=== PATIENT | male | born 1960 | race Caucasian/White ===

== ENCOUNTER → 2021-01-24 | Outpatient (CLI) | payer SELFPAY ==
--- NOTE | 2021-01-24 12:46 | Diagnostic Imaging Report ---
EXAMINATION: CT chest without contrast. TECHNIQUE: Multiple contiguous axial images were obtained through the chest without the use of intravenous contrast. All CT scans use one or more of the following dose optimizing techniques: automated exposure control, MA and/or KvP adjustment based on patient size and exam type or iterative reconstruction. HISTORY: Chest pain for 5 days. COMPARISON: None available. FINDINGS: The heart size is within normal limits. No pericardial effusion is present. Small amount of calcified atherosclerotic plaque is seen in the thoracic aorta and coronary arteries. No evidence of aneurysm formation. There is no mediastinal, hilar, or axillary lymphadenopathy. Scattered subcentimeter pulmonary nodules are seen in the lungs, the largest in the right upper lobe measuring 0.5 cm. No evidence of pulmonary mass or focal consolidation. No central endobronchial obstructing lesions are identified. There is no pleural effusion or pneumothorax. No acute fracture or dislocation is seen in the chest. Small focal sclerotic lesions are seen in the inferior endplate of T12 and superior endplate of L2. Limited views of the upper abdominal structures demonstrate no acute abnormalities. Both adrenal glands are unremarkable. IMPRESSION: 1. Scattered subcentimeter pulmonary nodules measuring up to 0.5 cm. Recommend follow-up chest CT in 6-12 months to ensure stability. 2. No focal consolidation or pleural effusion. 3. Small focal sclerotic lesions in the inferior endplate of T12 and superior endplate of L2. These are indeterminate and attention on follow-up is recommended. Further characterization may be considered with MRI of the lumbar spine with and without contrast or nuclear medicine bone scan. Dictated by: Dictated on workstation # [id number]
== END ==
LOC: RAD FS 12:02
PROVIDERS: ATTEND Family Medicine
DX: R91.8 Other nonspecific abnormal finding of lung field (principal); M89.9 Disorder of bone, unspecified; Z87.09 Personal history of other diseases of the respiratory system
CPT/HCPCS: 71250